=== PATIENT | male | born 1985 | race Hispanic/Latino ===

== ENCOUNTER 2017-04-13 08:19 | Emergency (ER) | payer MEDICAID ==
[~2017-04-13] VITALS: Ht 180.3 cm; Wt 65.0 kg
[~2017-04-13 08:19] MED LIST: ALEVE220 M2 PO; BACTRIM DS1 TAB OR; CIPRO500 MG OR; EC-NAPROSYN500 MG PO; FLEXERIL PO; LORTAB 5 OR; MEDDOSEPAK PO; NAPROSYN500 MG PO; NO HOME MEDS; RELENZA IN; VALACYCLOVIR500 MG PO; ZOFRAN ODT4 MG OR
[2017-04-13 09:24] LABS: HEMATOCRIT 40.3 % (39.0-50.0); HEMOGLOBIN 13.9 g/dl (14.0-18.0); IMMATURE GRANULOCYTES 0.4 % (0.0-1.0); MEAN CELL VOLUME 89.4 fL CALC (80.0-100.0); MEAN CORPUSCULAR HGB 30.8 pG CALC (26.0-32.0); MEAN CORPUSCULAR HGB CONC 34.5 g/L CALC (32.0-36.0); NEUT# 4.64 thou/uL (1.82-7.42); RED BLOOD COUNT 4.51 mill/uL (4.70-6.10); RED CELL DISTRI WIDTH 12.4 % (11.5-15.5)
[2017-04-13 09:28] LABS: PROTHROMBIN TIME 10.7 SECONDS (9.0-12.5)
[2017-04-13 09:33] LABS: ALBUMIN 4.3 g/dL (3.2-5.0); ALKALINE PHOSPHATASE 67 u/l (38-126); ANION GAP 14 (6-22 (CALC)); BILIRUBIN, TOTAL 0.8 mg/dL (0.0-1.4); BUN 10 mg/dL (9-20); BUN/CREATININE RATIO 12 (12-20 (CALC)); CALCIUM 9.3 mg/dL (8.4-10.2); CARBON DIOXIDE 27 mmol/l (22-30); CHLORIDE 104 mmol/l (95-108); CREATININE 0.8 mg/dL (0.7-1.3); GFR > 60 ML/MIN (>=60 (CALC)); GFR FOR AFR.AMER. > 60 ML/MIN (>=60 (CALC)); GLUCOSE 127 mg/dL (75-110); POTASSIUM 4.1 mmol/l (3.5-5.1); SGOT/AST 20 u/l (17-59); SGPT/ALT 28 u/l (21-72); SODIUM 142 mmol/l (137-146); TOTAL PROTEIN 7.1 g/dL (6.3-8.2)
[2017-04-13 09:45] LABS: MYOGLOBIN 28 ng/mL (0 - 121)
[2017-04-13 10:11] VITALS: BP 127/84
== END 2017-04-13 10:55 | disposition short-term general hospital (02) | DRG 201 ==
LOC: ED 08:19
PROVIDERS: Emergency Medicine
PROC: 0W9B30Z Drainage of Left Pleural Cavity with Drainage Device, Percutaneous Approach (ICD-10-PCS; principal; 2017-04-13)
DX: J93.9 Pneumothorax, unspecified (principal); F17.200 Nicotine dependence, unspecified, uncomplicated; R06.02 Shortness of breath; R07.9 Chest pain, unspecified; R07.1 Chest pain on breathing; R94.31 Abnormal electrocardiogram [ECG] [EKG]

== ENCOUNTER 2017-11-01 00:38 | Emergency (ER) | payer SELFPAY ==
[~2017-11-01] VITALS: Ht 180.3 cm; Wt 65.9 kg
[2017-11-01 01:37] LABS: HEMATOCRIT 40.9 % (39.0-50.0); HEMOGLOBIN 13.9 g/dl (14.0-18.0); IMMATURE GRANULOCYTES 0.2 % (0.0-1.0); MEAN CELL VOLUME 89.5 fL CALC (80.0-100.0); MEAN CORPUSCULAR HGB 30.4 pG CALC (26.0-32.0); NEUT# 2.23 thou/uL (1.82-7.42); RED BLOOD COUNT 4.57 mill/uL (4.70-6.10); RED CELL DISTRI WIDTH 12.1 % (11.5-15.5)
[2017-11-01 01:48] LABS: ALBUMIN 3.8 g/dL (3.2-5.0); ALKALINE PHOSPHATASE 66 u/l (38-126); ANION GAP 15 (6-22 (CALC)); BILIRUBIN, TOTAL 0.4 mg/dL (0.0-1.4); BUN 15 mg/dL (9-20); BUN/CREATININE RATIO 18 (12-20 (CALC)); CALCIUM 9.3 mg/dL (8.4-10.2); CARBON DIOXIDE 23 mmol/l (22-30); CHLORIDE 109 mmol/l (95-108); CREATININE 0.9 mg/dL (0.7-1.3); GFR > 60 ML/MIN (>=60 (CALC)); GFR FOR AFR.AMER. > 60 ML/MIN (>=60 (CALC)); GLUCOSE 112 mg/dL (75-110); POTASSIUM 3.9 mmol/l (3.5-5.1); SGOT/AST 18 u/l (17-59); SGPT/ALT 16 u/l (21-72); SODIUM 143 mmol/l (137-146); TOTAL PROTEIN 6.3 g/dL (6.3-8.2)
[2017-11-01 01:57] LABS: MYOGLOBIN 16 ng/mL (0 - 121)
[2017-11-01] MEDS ORDERED: NAPROSYN500 MG PO (02:04)
[2017-11-01 02:31] VITALS: BP 113/70
== END 2017-11-01 02:31 | disposition home or self-care (01) | DRG 313 ==
LOC: ED 00:38
PROVIDERS: Emergency Medicine
DX: R07.89 Other chest pain (principal); M79.1 Myalgia

== ENCOUNTER 2018-01-21 12:06 | Emergency (ER) | payer SELFPAY ==
[~2018-01-21] VITALS: Ht 180.3 cm; Wt 65.9 kg
[2018-01-21 12:38] LABS: HEMATOCRIT 48.2 % (39.0-50.0); HEMOGLOBIN 15.6 g/dl (14.0-18.0); IMMATURE GRANULOCYTES 0.4 % (0.0-1.0); MEAN CELL VOLUME 92.9 fL CALC (80.0-100.0); MEAN CORPUSCULAR HGB 30.1 pG CALC (26.0-32.0); MEAN CORPUSCULAR HGB CONC 32.4 g/L CALC (32.0-36.0); NEUT# 4.09 thou/uL (1.82-7.42); RED BLOOD COUNT 5.19 mill/uL (4.70-6.10); RED CELL DISTRI WIDTH 12.9 % (11.5-15.5)
[2018-01-21 12:58] LABS: ANION GAP 19 (6-22 (CALC)); BUN 12 mg/dL (9-20); BUN/CREATININE RATIO 14 (12-20 (CALC)); CARBON DIOXIDE 28 mmol/l (22-30); CHLORIDE 102 mmol/l (95-108); CREATININE 0.9 mg/dL (0.7-1.3); GFR > 60 ML/MIN (>=60 (CALC)); GFR FOR AFR.AMER. > 60 ML/MIN (>=60 (CALC)); POTASSIUM 4.4 mmol/l (3.5-5.1); SODIUM 144 mmol/l (137-146)
[2018-01-21 16:00] VITALS: BP 125/79
== END 2018-01-21 16:00 | disposition short-term general hospital (02) | DRG 201 ==
LOC: ED 12:06
PROVIDERS: Family Medicine
DX: J93.9 Pneumothorax, unspecified (principal); R06.02 Shortness of breath; R07.9 Chest pain, unspecified; Z20.1 Contact with and (suspected) exposure to tuberculosis
CPT/HCPCS: Q9967

== ENCOUNTER 2023-07-08 02:25 | Emergency (ER) | payer MEDICAID | END 2023-07-08 02:40 | disposition home or self-care (01) | DRG 951 | LOC: ED 02:25 → LWOBS 02:40 | DX: Z53.21 Procedure and treatment not carried out due to patient leaving prior to being seen by health care provider (principal) ==

== ENCOUNTER 2023-10-26 22:29 | Emergency (ER) | payer MEDICAID ==
[~2023-10-26] VITALS: Ht 180.3 cm; Wt 65.8 kg
[~2023-10-26 22:29] MED LIST changes: +TRAMADOL HYDROC50 M1 PO
[2023-10-26 22:57] VITALS: BP 137/84
[2023-10-26 23:00] VITALS: BP 138/90
[2023-10-26 23:13] LABS: BASO% 0.1 % (0-3); EOS% 0.3 % (0-8); HEMOGLOBIN 13.7 g/dl (14.0-18.0); IMMATURE GRANULOCYTES 0.2 % (0.0-5.0); MEAN CELL VOLUME 91.8 fL CALC (80.0-100.0); MEAN CORPUSCULAR HGB 30.4 pG CALC (26.0-32.0); MEAN CORPUSCULAR HGB CONC 33.1 g/dL CAL (32.0-36.0); MONO% 8.7 % (2-13); NEUT# 10.89 thou/uL (1.82-7.42); NEUT% 82.7 % (42-76); RED BLOOD COUNT 4.51 mill/uL (4.70-6.10)
[2023-10-26 23:15] VITALS: BP 136/89
[2023-10-26 23:30] VITALS: BP 132/79
[2023-10-26 23:30] LABS: ALBUMIN 4.3 g/dL (3.2-5.0); ALKALINE PHOSPHATASE 83 u/l (38-126); ANION GAP 13 (6-22 (CALC)); BILIRUBIN, TOTAL 0.4 mg/dL (0.2-1.3); BUN 10 mg/dL (9-20); BUN/CREATININE RATIO 13 (12-20 (CALC)); CARBON DIOXIDE 28 mmol/l (22-30); CHLORIDE 100 mmol/l (95-108); CREATININE 0.8 mg/dL (0.7-1.3); GFR FOR AFR.AMER. > 60 ML/MIN (>=60 (CALC)); GFR OTHER RACES > 60 ML/MIN (>=60 (CALC)); HEMATOCRIT 41.4 % (39.0-50.0); POTASSIUM 3.6 mmol/l (3.5-5.1); SGOT/AST 25 u/l (17-59); SODIUM 137 mmol/l (137-146)
[2023-10-26 23:31] LABS: TOTAL PROTEIN 7.8 g/dL (6.3-8.2)
[2023-10-26 23:45] VITALS: BP 121/82
[2023-10-27] VITALS: BP 118/71
[2023-10-27 00:15] VITALS: BP 111/72
[2023-10-27] MEDS ORDERED: TORADOL PO (00:24)
[2023-10-27] MEDS ORDERED: TRAMADOL HCL50 MG PO (00:24)
[2023-10-27] MEDS ORDERED: VIBRAMYCIN100 M2 PO (00:24)
[2023-10-27 00:30] VITALS: BP 118/78
[2023-10-27 00:45] VITALS: BP 126/81
[2023-10-27 01:00] VITALS: BP 116/70
[2023-10-27 01:15] VITALS: BP 116/70
== END 2023-10-27 01:30 | disposition home or self-care (01) ==
LOC: ED 22:29
PROVIDERS: Family Medicine
DX: J18.9 Pneumonia, unspecified organism (principal); R09.1 Pleurisy